=== PATIENT | female | born 1995 | race Two or more races ===

== ENCOUNTER 2016-09-01 02:42 | Emergency (ER) | payer OTHER ==
[~2016-09-01] VITALS: Ht 160 cm; Wt 78.0 kg
[2016-09-01] MEDS ORDERED: NKM (02:49)
[2016-09-01 03:02] VITALS: BP 160/90
[2016-09-01] MEDS ORDERED: ALBUTEROL SULF8.5 GM INH (03:10)
[2016-09-01] MEDS ORDERED: PREDNISONE20 MG ORAL (03:10)
--- NOTE | 2016-09-01 03:10 | Emergency Room Report ---
History of Present Illness General Chief Complaint: Upper Respiratory Illness Source: Patient Present Illness [facility] This is a 21-year-old female with no past medical history. She presents with chief complaint of shortness of breath and coughing for the last 2 days. Subjective fever. Coughing is productive of phlegm. No nausea no vomiting. Chest tightness from the coughing. Worse with inspiration. Never had this problem before. No history of asthma. Allergies: Coded Allergies: No Known Allergies (Unverified , 09/01/16) Patient History Past Medical History: none, see triage record, old chart reviewed Past Surgical History: none Pertinent Family History: none Social History: Denies: smoking Last Menstrual Period: 07/11/16 Now: No : 0 Para: 0 Immunizations: other Reviewed Nursing Documentation: PMH: Agreed, PSxH: Agreed Nursing Documentation-PMH Past Medical History: No Stated History Review of Systems Eye: Denies: blurred vision, eye pain ENT: Reports: nose congestion, Denies: ear pain, throat swelling Respiratory: Reports: cough, shortness of breath Cardiovascular: Denies: chest pain, palpitations Gastrointestinal: Denies: abdominal pain, diarrhea, nausea, vomiting Musculoskeletal: Denies: back pain, joint pain Skin: Denies: rash Neurological: Denies: headache, numbness Endocrine: Denies: increased thirst, increased urine Hematologic/Lymphatic: Denies: easy bruising All Other Systems: negative except mentioned in HPI Physical Exam Vital Signs Date Time Temp Pulse Resp B/P Pulse Ox O2 Delivery O2 Flow Rate FiO2 09/01/16 02:45 99.0 100 16 160/90 93 Room Air vitals unremarkable. Mild hypertension and hypoxia Sp02 EP Interpretation: abnormal General Appearance: well appearing, no apparent distress, alert Head: normocephalic, atraumatic Eyes: bilateral eye EOMI, bilateral eye PERRL ENT: hearing grossly normal, normal pharynx Neck: full range of motion, supple, no meningismus Respiratory: chest non-tender, rhonchi, wheezing Cardiovascular #1: regular rate, rhythm, no murmur Gastrointestinal: normal bowel sounds, non tender, no mass, no organomegaly, no bruit, non-distended Musculoskeletal: back normal, gait/station normal, normal range of motion Psychiatric: mood/affect normal Skin: warm/dry Medical Decision Making Diagnostic Impression: Primary Impression: Acute bronchitis with bronchospasm Additional Impression: Upper respiratory infection Qualified Codes: J06.9 - Acute upper respiratory infection, unspecified ER Course Patient with acute bronchitis with bronchospasm. No evidence of ACS, PE, pneumonia to name a few. This is most likely viral in nature. Patient better after breathing treatment. Last Vital Signs Date Time Temp Pulse Resp B/P Pulse Ox O2 Delivery O2 Flow Rate FiO2 09/01/16 02:45 99.0 100 16 160/90 93 Room Air Status: improved Disposition: HOME, SELF-CARE Condition: Stable Scripts Prednisone* (PREDNISONE*) 20 Mg Tablet 60 MG ORAL DAILY, #12 TAB Prov: RAGHU JAFFE M.D. 09/01/16 Albuterol Sulfate* (ALBUTEROL SULFATE MDI*) 8.5 Gm Hfa.aer.ad 2 PUFF INH Q4H Y for cough/wheezing, #1 EA 0 Refills Prov: RAGHU JAFFE M.D. 09/01/16 Additional Instructions: Followup with your Dr. in 2-3 days. Increase fluids. Return if symptom worsen. RAGHU JAFFE M.D. Sep 01, 2016 03:10
[2016-09-01] MEDS ORDERED: Ipratropium 0.02% Inh Soln 2.5ml UD HHN ONE (03:15)
[2016-09-01] MEDS ORDERED: PredniSONE 20mg tab ORAL ONE (03:15)
[2016-09-01] MEDS ORDERED: Albuterol ud Inhalation HHN ONE ×2 (03:15→03:45)
[2016-09-01 04:19] VITALS: BP 132/63
== END 2016-09-01 04:19 | disposition home or self-care (01) ==
LOC: EMR 03:20
DX: J20.9 Acute bronchitis, unspecified (principal); J06.9 Acute upper respiratory infection, unspecified
CPT/HCPCS: 94640; 94664; 99284